=== PATIENT | male | born 2000 | race Caucasian/White ===

== ENCOUNTER 2023-08-21 23:09 | Emergency (ER) | payer MEDICAID ==
[~2023-08-21] VITALS: Ht 182.9 cm; Wt 66.7 kg
[2023-08-21 23:21] VITALS: BP 108/49; PULSE 60; RESP 16; TEMP 97.2; O2SAT 100
[2023-08-21 23:31] VITALS: O2SAT 98
[2023-08-22] MEDS ORDERED: LIDOCAINE MPF 1% 5 ML ONE (00:36)
[2023-08-22] MEDS: LIDOCAINE MPF 1% 10 MG/ML VIAL INJ ONE (01:27)
[2023-08-22] MEDS: IBUPROFEN 600 MG TAB PO ONE (01:31)
[2023-08-22] MEDS ORDERED: IBUP-2213 PO (01:32)
== END 2023-08-22 01:34 | disposition home or self-care (01) ==
LOC: MED 23:09
DX: S61.412A Laceration without foreign body of left hand, initial encounter (principal); Z79.899 Other long term (current) drug therapy; W26.0XXA Contact with knife, initial encounter; Y93.89 Activity, other specified; Y92.89 Other specified places as the place of occurrence of the external cause; Y99.8 Other external cause status
CPT/HCPCS: 12001; 99282; J2001